=== PATIENT | male | born 1955 | race Caucasian/White ===

== ENCOUNTER 2023-11-24 07:19 | Emergency (ER) | payer OTHER, SELFPAY ==
[2023-11-24 07:21] VITALS: BP 132/85
[2023-11-24] MEDS: MORPHINE SULFATE 2 MG IV (07:53)
[2023-11-24] MEDS: ZOFRAN 4 MG IV (07:54)
[2023-11-24] MEDS: NSS 1000 IV (07:58)
[2023-11-24] MEDS: TORADOL 15 MG IV (08:02)
--- NOTE | 2023-11-24 08:10 | ED.GENMED ---
History of Present Illness
General
Chief Complaint: Abdominal Symptoms
Source: patient and spouse
Exam Limitations: none
Time Seen by Provider: 11/24/23 07:32
Nursing documentation reviewed up to this point in time: agreed with
Travel History
Have you had any contact with someone who has COVID-19?: No
Do you have any symptoms of coronavirus? Fever > 100 degrees, chills, cough, shortness of breath, sore throat, loss of taste or smell, muscle aches, or headache?: No
History of Present Illness
History of Present Illness:
Patient with history of kidney stones, presents to ED secondary to sudden onset of right groin pain, associated with back pain since last time. Patient has had multiple vomiting episodes upon waking up this morning, with worsening pain. Denies
fever or chills. Denies trauma. Denies difficulty with urination. Denies recent illness. Denies recent change in medications or diet. Denies recent change in bowel habits. Patient states that his previous episode of kidney stone was similar in
quality, but not as severe.
Review of Systems
Review of Systems
Allergies reviewed?: Yes
All Other Systems: ROS reviewed and negative except as documented in HPI and ROS
Constitutional: Reports no symptoms
ABD/GI: Reports nausea and vomiting; Denies abdominal pain or diarrhea
: Reports flank pain
Musculoskeletal: Reports no symptoms
Skin: Reports no symptoms
Neurological: Reports no symptoms
Phy Exam
Physical Exam
Physical Exam:
Physical Exam
General: moderate painful distress, not acutely ill. afebrile
Head: nc/at. eomi
Neck: supple. no meningeal signs.
Heart: s1/s2 regular rate and rhythm, no murmur. equal radial pulses.
Lungs: no acute respiratory distress. clear bilaterally
Abdomen: normal bowel sounds. not tender.
Neuro: alert and oriented. no focal neurological deficits
Skin: no rash
Psychiatric: well kept. interactive and cooperative
Extremities: no edema. no calf tenderness.
Course
Orders/Labs/Results
Orders:
Orders
11/24/23 07:51
0.9% Sodium Chloride 1000 ml [Nss] 1,000 ml IV BOLUS
Ketorolac [Toradol] 15 mg IV NOW STA
Morphine Sulfate 2 mg IV NOW STA
Ondansetron Injectable [Zofran] 4 mg IV NOW STA
11/24/23 07:52
Ketorolac [Toradol] 30 mg .ROUTE .STK-MED ONE
Ondansetron Injectable [Zofran] 4 mg .ROUTE .STK-MED ONE
11/24/23 07:53
CT Abd/pel Without Iv Or Oral Urgent
Comment:
Reason For Exam: right flank pain
Morphine Sulfate 2 mg .ROUTE .STK-MED ONE
11/24/23 07:59
Basic Metabolic Panel Urgent
Complete Blood Count/No Diff Urgent
Abnormal Lab Results
11/24/23
07:59
RBC 4.69 L 10^6/uL
(4.70-6.10)
MCH 31.1 H pg
(27.0-31.0)
MPV 11.4 H fL
(7.4-10.4)
Carbon Dioxide 20 L mmol/L
(22-30)
BUN 31 H mg/dl
(9-20)
Glucose 134 H mg/dl
(70-99)
Calcium 10.6 H mg/dl
(8.4-10.2)
11/24/23 07:59
11/24/23 07:59
Vital Signs
Initial and Last Documented VS:
Initial Vital Signs
Pulse Resp BP Pulse Ox
89 22 132/85 97
11/24/23 07:21 11/24/23 07:21 11/24/23 07:21 11/24/23 07:21
Last Documented Vital Signs
Temp Pulse Resp BP Pulse Ox
97.8 F 65 18 92/57 97
11/24/23 09:12 11/24/23 09:12 11/24/23 09:12 11/24/23 09:12 11/24/23 09:12
MDM/Problems Addressed
MDM/Problems Addressed:
History, exam, and CT scan consistent with obstructing renal stone, resulting in mild hydronephrosis. Otherwise, patient is afebrile, hemodynamically stable, and is able to urinate freely. Patient reports significant improvement in symptoms after
treatment. Patient will be discharged home in stable condition, to the care of his spouse, with urine strainer, along with prescribed medications, to be taken as needed, along with outpatient consultation with urology. Advised to return to ED with
worsening symptoms, i.e. fever/worsening pain/inability to urinate.
*Critical Care Note
Total Time (30-74mins, 75-104mins- exclusive of procedures): Not Applicable
ED Attending Note
-
Portions of this chart may have been created with voice recognition software.� Occasional wrong word or��sound alike� substitutions may have occurred due to the inherent limitations of voice recognition software.
Discharge Plan
Departure
Patient Disposition: Home (Routine Discharge)
Date of Disposition: 11/24/23
Time of Disposition: 09:18
Patient with high blood pressure during this ER visit?: Yes
Condition: Good
Discharge Problem:
Renal colic
Instructions: Renal Colic (DC)
Prescriptions:
New
oxycodone-acetaminophen [Percocet] 5-325 mg Tablet
1 tab PO Q6HPRN PRN (Reason: pain) Qty: 14 0RF
ondansetron 4 mg Tablet,Disintegrating
4 mg PO TIDPRN PRN (Reason: nausea/vomiting) Qty: 12 0RF
tamsulosin [Flomax] 0.4 mg Capsule
0.4 mg PO DAILY Qty: 7 0RF
No Action
atorvastatin [Lipitor] 40 mg Tablet
40 mg PO QPM
polyethylene glycol 3350 [Miralax] 17 gram Powder In Packet
17 g PO DAILYPRN PRN (Reason: constipation)
amlodipine [Norvasc] 5 mg Tablet
5 mg PO DAILY
naproxen sodium [Aleve] 220 mg Tablet
220 mg PO BIDPRN PRN (Reason: mild pain)
lisinopril 40 mg Tablet
40 mg PO DAILY
simethicone [Gas-X] 80 mg Tablet,Chewable
80 mg PO BIDPRN PRN (Reason: gas pains)
Referrals:
Mack Pedroza MD [Active] -
Chantal Ivey CRNP [Family Provider] -
Activity Restrictions/Additional Instructions:
As discussed, please follow-up with your primary care physician and/or referred urologist for further evaluation and treatment. Please return to ED with worsening symptoms, i.e. fever/inability to urinate/worsening pain. Your prescriptions have
been sent electronically to [facility] pharmacy in [place].
Interventions
Interventions:
*Risk Screen - Suicide Last Done: 11/24/23 09:40
*General Assessment Last Done: 11/24/23 07:55
*Neglect/Abuse Screening Last Done: 11/24/23 09:40
ED- Fall Risk Assessment Last Done: 11/24/23 07:55
*ED COVID-19 Vaccine History Last Done: 11/24/23 07:29
*Nursing Disposition Last Done: 11/24/23 09:40
FC-Pqwvba-Hmfladieja Assessment Last Done: 11/24/23 07:55
Discharge Date and Time
Discharge Date/Time: 11/24/23 09:42
Print Language: BURUNDIAN
[2023-11-24 08:17] LABS: Hematocrit 41.4 % (39.0-52.0); Hemoglobin 14.6 g/dL (13.0-18.0); Mean Corp Hgb Conc. 35.3 g/dL (33.0-37.0); Mean Corpuscular Hgb 31.1 pg (27.0-31.0); Mean Corpuscular Volume 88.3 fL (80.0-94.0); Mean Platelet Volume 11.4 fL (7.4-10.4); Platelet Count 221 10^3/uL (130-400); Red Blood Cell Count 4.69 10^6/uL (4.70-6.10); Red Cell Dist. Width 12.4 % (11.5-14.5); White Blood Cell Count 6.7 10^3/uL (4.8-10.8)
[2023-11-24 08:30] LABS: Blood Urea Nitrogen 31 mg/dl (9-20); Calcium 10.6 mg/dl (8.4-10.2); Carbon Dioxide 20 mmol/L (22-30); Chloride 103 mmol/L (98-107); Glucose 134 mg/dl (70-99); Sodium 140 mmol/L (135-145); eGFR > 60.00
[2023-11-24 09:12] VITALS: BP 92/57
== END 2023-11-24 09:42 | disposition home or self-care (01) ==
LOC: EMR 07:19
PROVIDERS: EMERGENCY PHYSICIAN Emergency Medicine; FAMILY PHYSICIAN Nurse Practitioner Family
DX: N13.2 Hydronephrosis with renal and ureteral calculous obstruction (principal); I10 Essential (primary) hypertension; Z87.442 Personal history of urinary calculi
CPT/HCPCS: 99284; 96374; 96375 ×2; 96361; 74176; 80048; 85027

== ENCOUNTER 2023-12-01 11:28 | Observation (INO) | payer OTHER, SELFPAY ==
[2023-12-01] VITALS (10 sets, daily range): BP systolic 110–150; BP diastolic 67–96; BMI 27.6; BMI 25.6
--- NOTE | 2023-12-01 09:54 | ED.GENMED ---
History of Present Illness
General
Chief Complaint: Abdominal Pain
Source: patient
Exam Limitations: none
Time Seen by Provider: 12/01/23 09:43
Travel History
Have you had any contact with someone who has COVID-19?: No
Do you have any symptoms of coronavirus? Fever > 100 degrees, chills, cough, shortness of breath, sore throat, loss of taste or smell, muscle aches, or headache?: No
History of Present Illness
History of Present Illness:
See MDM
Past History
Past History
ED Past Medical History: HTN, Hypercholesterolemia and Other (Kidney stone)
Social History
Tobacco: Non-smoker
Alcohol: None
Phy Exam
Physical Exam
Physical Exam:
See MDM
Course
Orders/Labs/Results
Orders:
Orders
12/01/23 10:10
Complete Blood Count/With Diff Urgent
Comprehensive Metabolic Panel Urgent
0.9% Sodium Chloride 1000 ml [Nss] 1,000 ml IV BOLUS
HYDROmorphone [Dilaudid] 0.5 mg IV NOW STA
Ketorolac [Toradol] 30 mg IV NOW STA
Ondansetron Injectable [Zofran] 4 mg IV NOW STA
Vital Signs
Initial and Last Documented VS:
Initial Vital Signs
Temp Pulse BP Pulse Ox
97.7 F 65 130/75 99
12/01/23 09:34 12/01/23 09:34 12/01/23 09:34 12/01/23 09:34
Last Documented Vital Signs
Temp Pulse BP Pulse Ox
97.7 F 65 130/75 99
12/01/23 09:34 12/01/23 09:34 12/01/23 09:34 12/01/23 09:34
MDM/Problems Addressed
Differential Diagnosis Includes:
HPI and MDM Narrative:
68-year-old male presenting with recurrent right flank pain. The pain is now radiating to the front. He was diagnosed with a kidney stone last week. He is prescribed Percocet, Flomax and Zofran. He saw the urologist Dr. Pedroza yesterday. The
plan was watch and wait but patient states the pain is getting worse and he is unable to take the pain medicine due to vomiting regardless of taking the nausea medicine.
Will discuss case with urology
Physical exam
General: Mildly uncomfortable
HEENT: protecting airway
Neck: appears supple
CV: No evidence of cyanosis
Resp: No accessory muscle use
Abd: Non-distended. No significant abdominal tenderness noted
Extremities: No deformities
Neuro: alert
Psych: Normal affect
Skin: Intact
Problems Addressed including Acute and Chronic Conditions affecting care:
1. Kidney stone
Acuity: acute
Prognosis: stable
Details: Patient returns due to uncontrolled pain
Updates
Case discussed with urology who will admit for trial of passage overnight and possible OR tomorrow
Differential Diagnosis (but not limited to): Kidney stone, muscle strain
Testing considered: Repeat CT
Drug therapy (if applicable): OTC meds, please see d/c instruction regarding Rx drugs
Amount and/or Complexity of Data Reviewed
Clinical info obtained from: Patient
External data reviewed: Recent evaluation with CT scan showing proximal right ureteral stone with hydronephrosis
Labs I independently reviewed (but not limited to): White blood cell count
Radiology: N/A
Pulse Ox: not hypoxic
EKG independently reviewed: N/A
Environmental Services Associate: N/A
Critical Care: N/A
Risk of Complication:
Social Determinants of health: Good social support
Discussed with other providers: Urologist
Escalation of Care includes Admit/Obs: Given the uncontrolled pain and nausea, will admit
Occasional wrong word or 'sound a like' substitutions may have occurred due to the inherent limitations of voice recognition software. Read the chart carefully and recognize, using context, where substitutions have occurred.
*Critical Care Note
Total Time (30-74mins, 75-104mins- exclusive of procedures): Not Applicable
ED Attending Note
-
Portions of this chart may have been created with voice recognition software.� Occasional wrong word or��sound alike� substitutions may have occurred due to the inherent limitations of voice recognition software.
Discharge Plan
Departure
Patient Disposition: Admit
Date of Disposition: 12/01/23
Time of Disposition: 10:15
Admit to: Med/Surg
Presentation/result/management discussed w/ accepting MD/DO: Urologist
Discharge Problem:
Kidney stone on right side
Prescriptions:
No Action
atorvastatin [Lipitor] 40 mg Tablet
40 mg PO QPM
polyethylene glycol 3350 [Miralax] 17 gram Powder In Packet
17 g PO DAILYPRN PRN (Reason: constipation)
amlodipine [Norvasc] 5 mg Tablet
5 mg PO DAILY
naproxen sodium [Aleve] 220 mg Tablet
220 mg PO BIDPRN PRN (Reason: mild pain)
lisinopril 40 mg Tablet
40 mg PO DAILY
simethicone [Gas-X] 80 mg Tablet,Chewable
80 mg PO BIDPRN PRN (Reason: gas pains)
oxycodone-acetaminophen [Percocet] 5-325 mg Tablet
1 tab PO Q6HPRN PRN (Reason: pain) Qty: 14 0RF
ondansetron 4 mg Tablet,Disintegrating
4 mg PO TIDPRN PRN (Reason: nausea/vomiting) Qty: 12 0RF
tamsulosin [Flomax] 0.4 mg Capsule
0.4 mg PO DAILY Qty: 7 0RF
Discharge Date and Time
Print Language: KYRGYZ
[2023-12-01] MEDS: DILAUDID 0.5 MG IV (10:28)
[2023-12-01] MEDS: TORADOL 30 MG IV (10:29)
[2023-12-01] MEDS: ZOFRAN 4 MG IV (10:29)
[2023-12-01] MEDS: NSS 1000 IV (10:30)
[2023-12-01 10:38] LABS: % Basophils 0.4 % (0-2); % Eosinophils 0.1 % (0-6); % Immature Granulocytes 0.3 % (0-0.5); % Lymphocytes 11.4 % (20.5-51.1); % Neutrophils 80.8 % (42.2-75.2); Absolute Lymphocytes 0.9 10^3/uL (1.2-3.4); Absolute Monocytes 0.6 10^3/uL (0.1-0.6); Absolute Neutrophils 6.4 10^3/uL (1.4-6.5); Hemoglobin 13.5 g/dL (13.0-18.0); Mean Corp Hgb Conc. 35.5 g/dL (33.0-37.0); Mean Corpuscular Hgb 30.8 pg (27.0-31.0); Mean Corpuscular Volume 86.6 fL (80.0-94.0); Mean Platelet Volume 10.3 fL (7.4-10.4); Nucleated Red Blood Cells % 0 % (-); Platelet Count 187 10^3/uL (130-400); Red Blood Cell Count 4.39 10^6/uL (4.70-6.10); Red Cell Dist. Width 12.2 % (11.5-14.5); White Blood Cell Count 7.9 10^3/uL (4.8-10.8)
[2023-12-01 11:05] LABS: ALT (SGPT) 23 U/L (0-50); AST (SGOT) 26 U/L (17-59); Albumin 4.7 g/dl (3.5-5.0); Alkaline Phosphatase 72 U/L (38-126); Blood Urea Nitrogen 25 mg/dl (9-20); Calcium 10.4 mg/dl (8.4-10.2); Carbon Dioxide 24 mmol/L (22-30); Chloride 100 mmol/L (98-107); Estimated Creatinine Clearance 46 ml/min; Glucose 133 mg/dl (70-99); Sodium 136 mmol/L (135-145); Total Bilirubin 0.9 mg/dl (0.2-1.3); Total Protein 7.8 g/dl (6.3-8.2); eGFR 46.35
--- NOTE | 2023-12-01 11:42 | W.PN.ADMIT ---
Progress Note - Admit
Progress Note - Admit
see dictated note
pt with second ER visit for intractable colic
plan to admit for medical TOP- OR tomorrow if no stone passage
risks, benefits, alternatives and disabilities reviewed
[2023-12-01] MEDS: LEVAQUIN 100 IV (12:34)
[2023-12-01] MEDS: NSS with KCL 20 MEQ 1000 IV ×2 (14:13→23:48)
--- NOTE | 2023-12-01 14:24 | CM ---
Patient seen at bedside in Ed with and daughter also present. Patient states he lives in a e story home with . Patient PCP is Dr. Joselyn Dunn and it is a new doctor that he had an appointment next week for first appointment. Patient
Pharmacy needs [facility] in [place]. Patient is independent of ADL's and IADL's. Patient here as OBS/MCKEON and form provided to patient and . Patient to review and complete. Patient stated that he normally does not have any DME and have not had any VM
supports in the past. CM will continue to follow for discharge planning needs.
Plan; home with no needs pending continuing medical treatment plan.
[2023-12-01] MEDS: LIPITOR 40 MG PO (17:37)
[2023-12-01] MEDS: TORADOL 15 MG IV (17:38)
[2023-12-01] MEDS: TYLENOL 650 MG PO (22:05)
[2023-12-01] MEDS: COMPAZINE 5 MG IV (22:06)
[2023-12-02] VITALS (8 sets, daily range): BP systolic 114–145; BP diastolic 66–96
[2023-12-02] MEDS: TORADOL 15 MG IV (02:11)
--- NOTE | 2023-12-02 04:37 | PTCARENOTE ---
Pt aaox3 able to make his needs known. Pt npo from [place]. Per op care explained to pt with CHG wipes in am. Pt continued on IV fluids as ordered,prn pain meds & nausea meds given.Plan of care continued.
--- NOTE | 2023-12-02 07:47 | W.PN.UPDATE ---
Update Note
Progress Note Update
pt with mild intermittent colic- no stone passage
reviewed options
for OR today for ureteroscopy
risks, benefits, alternatives and disabilities reviewed
[2023-12-02 07:56] LABS: Hematocrit 34.4 % (39.0-52.0); Hemoglobin 11.9 g/dL (13.0-18.0); Mean Corp Hgb Conc. 34.6 g/dL (33.0-37.0); Mean Corpuscular Hgb 30.7 pg (27.0-31.0); Mean Corpuscular Volume 88.7 fL (80.0-94.0); Mean Platelet Volume 10.6 fL (7.4-10.4); Platelet Count 150 10^3/uL (130-400); Red Blood Cell Count 3.88 10^6/uL (4.70-6.10); White Blood Cell Count 3.8 10^3/uL (4.8-10.8)
[2023-12-02 08:22] LABS: Blood Urea Nitrogen 19 mg/dl (9-20); Calcium 9.5 mg/dl (8.4-10.2); Carbon Dioxide 25 mmol/L (22-30); Chloride 107 mmol/L (98-107); Estimated Creatinine Clearance 39 ml/min; Glucose 102 mg/dl (70-99); Potassium 4.3 mmol/L (3.5-5.1); Sodium 139 mmol/L (135-145); eGFR 37.71
[2023-12-02] MEDS: TORADOL IV (10:43)
--- NOTE | 2023-12-02 11:10 | W.IMMPOSTOP ---
Surgical Immed Post Op Note
-
Primary Surgeon:
estrella
Assisting Surgeon:
none
Pre-op Diagnosis:
right ureteral stone
Post-op Diagnosis:
same
Procedure Performed:
cysto,right retrograde, right ureteroscopy- laser litho and stent
Anesthesia Type:
gen
Specimen / Cultures:
stone
Estimated Blood Loss:
2cc
Complications:
none
Operative Findings:
stone fragmented and removed
stent placed
to pacu in stable condition- discharge later today if stable
[2023-12-02] MEDS: Pyridium 200 MG PO (11:31)
[2023-12-02] MEDS: LEVAQUIN 50 IV (12:01)
--- NOTE | 2023-12-02 13:59 | CM ---
Pt is postop .
Md entered order for discharge .
Pt agrees with dc today .
His Cristiane will drive him home.
MCKEON letter reviewed he said he would sign it.
Offered VN he declined need.
PLAN home no needs
[2023-12-05 23:38] LABS: Stone Analysis Mass 22 mg
== END 2023-12-02 14:10 | disposition home or self-care (01) ==
LOC: 4 EAST ACU 11:28
PROVIDERS: ADMITTING PHYSICIAN Specialist; EMERGENCY PHYSICIAN Student in an Organized Health Care Education/Training Program; FAMILY PHYSICIAN Family Medicine
DX: N13.2 Hydronephrosis with renal and ureteral calculous obstruction (principal); E78.00 Pure hypercholesterolemia, unspecified; I10 Essential (primary) hypertension; Z87.442 Personal history of urinary calculi
CPT/HCPCS: 52356; 74420; 76000; 80048; 80053; 82365; 85025; 85027; 96361; 96365; 96375; 99284; C1758; C2617; G0378

== ENCOUNTER → 2025-01-17 13:23 | Outpatient (REF) | payer OTHER, SELFPAY | LOC: HWRAD 13:23 | PROVIDERS: ATTENDING PHYSICIAN Specialist; FAMILY PHYSICIAN Family Medicine | DX: N20.1 Calculus of ureter (principal) | CPT/HCPCS: 74018 ==